=== PATIENT | male | born 1990 | race Caucasian/White ===

== ENCOUNTER → 2024-10-30 15:45 | Outpatient (REF) | payer OTHER, SELFPAY | LOC: RAD 15:45 | PROVIDERS: ATTENDING PHYSICIAN Student in an Organized Health Care Education/Training Program; FAMILY PHYSICIAN Nurse Practitioner Family | DX: S42.141A Displaced fracture of glenoid cavity of scapula, right shoulder, initial encounter for closed fracture (principal) | CPT/HCPCS: 73200 ==

== ENCOUNTER → 2024-11-01 08:29 | Outpatient (REF) | payer OTHER, SELFPAY | LOC: PAVMRI 08:29 | PROVIDERS: ATTENDING PHYSICIAN Student in an Organized Health Care Education/Training Program; FAMILY PHYSICIAN Nurse Practitioner Family | DX: S42.141A Displaced fracture of glenoid cavity of scapula, right shoulder, initial encounter for closed fracture (principal) | CPT/HCPCS: 73221 ==

== ENCOUNTER 2024-11-08 06:43 | Day surgery (SDC) | payer OTHER, SELFPAY ==
[2024-11-08] VITALS (9 sets, daily range): BP systolic 111–129; BP diastolic 61–78; BMI 26.2
[2024-11-08] MEDS: TYLENOL 1000 MG PO (12:00)
[2024-11-08] MEDS: NORMOSOL-R/PLASMALYTE-A 1000 IV (12:13)
--- NOTE | 2024-11-08 17:31 | W.IMMPOSTOP ---
Addendum entered and electronically signed by Emre Dowling MD 11/08/24 21:14:
Examination under anesthesia: positive sulcus sign, able to dislocate shoulder anteriorly and reduce
Original Note:
Surgical Immed Post Op Note
-
Primary Surgeon: Emre Dowling MD
Assisting Surgeon: Brent Mckeon PA-C
Pre-op Diagnosis: right anterior glenoid fracture
Post-op Diagnosis: right anterior glenoid fracture
Procedure Performed: open reduction internal reduction right glenoid
Anesthesia Type: general with regional block
Specimen / Cultures: none
Estimated Blood Loss: 150mL
Complications: none apparent
Operative Findings: right anterior glenoid fracture, inferior comminution
Implants: Lui 2.5mm headed screw x1, 2.5mm headless screw x2; Arthrex SwivelLock anchor x4
Operative dictaiton # [id number]
[2024-11-08] MEDS: DEMEROL 12.5 MG IV (17:46)
== END 2024-11-08 19:25 | disposition home or self-care (01) ==
LOC: SDS 06:43
PROVIDERS: ATTENDING PHYSICIAN Student in an Organized Health Care Education/Training Program
DX: S42.141A Displaced fracture of glenoid cavity of scapula, right shoulder, initial encounter for closed fracture (principal); S43.431A Superior glenoid labrum lesion of right shoulder, initial encounter; Y93.23 Activity, snow (alpine) (downhill) skiing, snowboarding, sledding, tobogganing and snow tubing
CPT/HCPCS: 23585; C1713; 73030; 76000